=== PATIENT | male | born 1935 | race African-American/Black ===

== ENCOUNTER 2019-03-18 16:33 | Inpatient (IN) | payer BC, MEDICAID ==
[~2019-03-18] VITALS: Ht 185.4 cm; Wt 60.6 kg
[2019-03-18] MEDS ORDERED: SODIUM CHLORIDE 0.9% 1,000 ML IV ONE (16:50)
[2019-03-18] MEDS ORDERED: ACETAMINOPHEN 325MG TABLET PO ONE (17:00)
[2019-03-18 17:43] LABS: BASOPHILS % 0.5 % (0.0-2.0); EOSINOPHILS % 0.7 % (0.0-5.0); HEMOGLOBIN. 12.6 g/dL (14.0-18.0); LYMPHOCYTES % 25.2 % (20.0-50.0); MEAN CORPUSCULAR HEMOGLOBIN 32.8 pg (28.0-32.0); MEAN CORPUSCULAR VOLUME 98.7 fL (80.0-94.0); MEAN PLATELET VOLUME 8.2 fl (7.4-10.4); MONOCYTES % 10.5 % (2.0-8.0); NEUTROPHILS % 63.1 % (40.0-76.0); PLATELET 245 x1000/uL (130-400); RED BLOOD CELL COUNT 3.85 mill/uL (4.7-6.1); RED CELL DISTRIBUTION WIDTH 14.3 % (11.6-14.6)
[2019-03-18 17:48] LABS: CHLORIDE 109 mEq/L (98-107)
[2019-03-18 17:54] LABS: D-DIMER 1.44 mg/L FEU (<0.50); PARTIAL THROMBOPLASTIN TIME 27.6 sec (23.4-31.0); PROTHROMBIN TIME 10.5 sec (9.6-11.0)
[2019-03-18] MEDS ORDERED: IOHEXOL-350 100 ML BOTTLE ONE (21:03)
[2019-03-18] MEDS ORDERED: LEVOFLOXACIN 750MG PREMIX 150 ML IV ONE (21:30)
[2019-03-18] MEDS ORDERED: ASPIRIN 325MG EC TABLET PO ONE (21:30)
[2019-03-18] MEDS ORDERED: SODIUM CHLORIDE 0.9% 1000ML BAG (SEPSIS BOLUS) IV ONE (21:30)
[2019-03-18 22:37] LABS: CLARITY URINE CLEAR (CLEAR); COLOR URINE YELLOW (YELLOW); KETONES URINE TRACE (NEGATIVE); LEUKOCYTE ESTERASE URINE NEGATIVE (NEGATIVE); NITRITE URINE NEGATIVE (NEGATIVE); OCCULT BLOOD URINE NEGATIVE (NEGATIVE); PROTEIN URINE NEGATIVE (NEGATIVE); SPECIFIC GRAVITY URINE 1.048 (1.005-1.030)
[2019-03-19] MEDS ORDERED: MAGNESIUM/ALUMINUM HYDROXIDE/SIMETHICONE 30ML UDC PO PRN (00:30)
[2019-03-19] MEDS ORDERED: DIPHENHYDRAMINE 50MG/ML VIAL IV PRN (00:30)
[2019-03-19] MEDS ORDERED: ONDANSETRON HCL 4MG/2ML INJ IV PRN (00:30)
[2019-03-19] MEDS ORDERED: GUAIFENESIN 200MG/10ML SUGAR FREE UDC PO PRN (00:30)
[2019-03-19] MEDS ORDERED: CLONIDINE 0.1MG TABLET PO PRN (00:30)
[2019-03-19] MEDS ORDERED: ACETAMINOPHEN 325MG TABLET PO PRN (00:30)
[2019-03-19] MEDS ORDERED: IPRATROPIUM/ALBUTEROL 0.5-3(2.5)MG/3ML NEB HHN PRN (00:30)
[2019-03-19] MEDS: SODIUM CHLORIDE 0.9% INJ 3ML FLUSH IVF SCH ×2 (07:30→21:33)
[2019-03-19 08:00] VITALS: BP 155/73
[2019-03-19] MEDS ORDERED: POTASSIUM CHLORIDE 20MEQ TABLET SR PO NR (08:49)
[2019-03-19] MEDS: HYDRALAZINE HCL 100MG TABLET PO SCH ×3 (09:20→21:23)
[2019-03-19 09:40] VITALS: BP 154/70
[2019-03-19 12:00] VITALS: BP 125/68
[2019-03-19] MEDS: ASPIRIN 81MG EC TABLET PO SCH (14:10)
[2019-03-19] MEDS: LOSARTAN POTASSIUM 50 MG TABLET PO SCH (14:10)
[2019-03-19] MEDS: AMLODIPINE 10MG TABLET PO SCH (14:11)
[2019-03-19 16:00] VITALS: BP 119/66
[2019-03-19 19:04] VITALS: BP 124/77
[2019-03-19] MEDS: ENOXAPARIN 40MG/0.4ML SYR SUBCUT SCH (19:08)
[2019-03-19 20:00] VITALS: BP 102/61
[2019-03-19] MEDS: ATORVASTATIN CALCIUM 40MG TABLET PO SCH (21:33)
[2019-03-20] VITALS: BP 109/68
[2019-03-20] MEDS: HYDRALAZINE HCL 100MG TABLET PO SCH ×3 (06:14→21:15)
[2019-03-20] MEDS: SODIUM CHLORIDE 0.9% INJ 3ML FLUSH IVF SCH ×3 (06:15→21:15)
[2019-03-20 08:00] VITALS: BP 105/59
[2019-03-20] MEDS: LOSARTAN POTASSIUM 50 MG TABLET PO SCH (09:00)
[2019-03-20] MEDS: AMLODIPINE 10MG TABLET PO SCH (09:00)
[2019-03-20] MEDS: ASPIRIN 81MG EC TABLET PO SCH (09:30)
[2019-03-20 12:00] VITALS: BP 99/50
[2019-03-20] MEDS ORDERED: REGADENOSON 0.4 MG/5 ML IV ONE (13:30)
[2019-03-20 16:00] VITALS: BP 100/55
[2019-03-20 17:11] LABS: T4 FREE 0.87 ng/dL (0.76-1.46)
[2019-03-20] MEDS: ENOXAPARIN 40MG/0.4ML SYR SUBCUT SCH (17:38)
[2019-03-20 20:00] VITALS: BP 116/61
[2019-03-20] MEDS: ATORVASTATIN CALCIUM 40MG TABLET PO SCH (21:15)
[2019-03-21] VITALS: BP 100/55
[2019-03-21 04:00] VITALS: BP 112/63
[2019-03-21] MEDS: HYDRALAZINE HCL 100MG TABLET PO SCH ×2 (06:00→14:04)
[2019-03-21] MEDS: SODIUM CHLORIDE 0.9% INJ 3ML FLUSH IVF SCH (06:01)
[2019-03-21 07:15] LABS: BASOPHILS % 0.5 % (0.0-2.0); EOSINOPHILS % 0.5 % (0.0-5.0); HEMATOCRIT. 33.8 % (42.0-52.0); HEMOGLOBIN. 11.3 g/dL (14.0-18.0); LYMPHOCYTES % 25.2 % (20.0-50.0); MEAN CORPUSCULAR HEMOGLOBIN 32.9 pg (28.0-32.0); MEAN CORPUSCULAR VOLUME 98.5 fL (80.0-94.0); MEAN PLATELET VOLUME 7.7 fl (7.4-10.4); MONOCYTES % 9.6 % (2.0-8.0); NEUTROPHILS % 64.2 % (40.0-76.0); PLATELET 218 x1000/uL (130-400); RED BLOOD CELL COUNT 3.43 mill/uL (4.7-6.1); RED CELL DISTRIBUTION WIDTH 14.4 % (11.6-14.6)
[2019-03-21 08:00] VITALS: BP 101/59
[2019-03-21] MEDS: LOSARTAN POTASSIUM 50 MG TABLET PO SCH (09:00)
[2019-03-21] MEDS: AMLODIPINE 10MG TABLET PO SCH (09:00)
[2019-03-21] MEDS: ASPIRIN 81MG EC TABLET PO SCH (09:21)
[2019-03-21 09:35] LABS: CHLORIDE 107 mEq/L (98-107)
[2019-03-21 09:42] LABS: LDL CHOLESTEROL 96 mg/dL (5-100)
[2019-03-21 09:43] LABS: HDL CHOLESTEROL 40 mg/dL (40-59)
[2019-03-21] MEDS ORDERED: REGADENOSON 0.4 MG/5 ML IV ONE (10:29)
[2019-03-21 12:00] VITALS: BP 112/66
[2019-03-21 13:18] VITALS: BP 132/66
[2019-03-21] MEDS ORDERED: CARVEDILOL 3.125 MG TABLET PO SCH (21:00)
[2019-03-22] MEDS ORDERED: LISINOPRIL 2.5MG TABLET PO SCH (09:00)
== END 2019-03-21 14:20 | disposition home or self-care (01) | DRG 205 ==
LOC: ER 16:57 → 8WST 21:46 → ENRESERV 03-19 08:18
PROVIDERS: ADMIT Internal Medicine; ATTEND Internal Medicine
DX: M94.0 Chondrocostal junction syndrome [Tietze] (principal); I50.23 Acute on chronic systolic (congestive) heart failure; J98.11 Atelectasis; I11.0 Hypertensive heart disease with heart failure; M25.512 Pain in left shoulder; J44.9 Chronic obstructive pulmonary disease, unspecified; K76.89 Other specified diseases of liver; N28.1 Cyst of kidney, acquired; Z87.891 Personal history of nicotine dependence; Z90.49 Acquired absence of other specified parts of digestive tract; Z79.899 Other long term (current) drug therapy
CPT/HCPCS: 36415; 71045; 71275; 78452; 80048; 80061; 81003; 83605; 83735; 83880; 84439; 84443; 84484; 85379; 93005; 93017; 93306; 99285; A9500; J1650; J1956; J2785; J7030; Q9967